=== PATIENT | female | born 1970 | race Caucasian/White ===

== ENCOUNTER → 2023-05-31 | Outpatient (CLI) | payer OTHER ==
--- NOTE | 2023-05-31 15:28 | US ---
EXAMINATION TYPE: US venous doppler duplex LE RT DATE OF EXAM: 05/31/2023 3:14 PM COMPARISON: NONE CLINICAL INDICATION: Female, 53 years old with history of R60.0 LOCALIZED EDEMA; Right calf pain foll owing trauma 5 days ago SIDE PERFORMED: Right TECHNIQUE: The lower extremity deep venous system is examined utilizing real time linear array sonog chicho with graded compression, doppler sonography and color-flow sonography. VESSELS IMAGED: Common Femoral Vein Deep Femoral Vein Greater Saphenous Vein * Femoral Vein Popliteal Vein Small Saphenous Vein * Proximal Calf Veins (* superficial vessels) Right Leg: Appears negative for DVT Right groin: 2.1 x 0.8 x 3.7cm lymph node. No thickened cortex. Right calf: 12.5 x 1.3 x 8.5cm superficial complex area . No surrounding hyperemia. IMPRESSION: 1. No ultrasound evidence for deep venous thrombosis of the right lower extremity. 2. Complex superficial elongated region within the right calf without internal color flow. This may r epresent a hematoma. 3. Multiple prominent right inguinal lymph node, likely reactive.
== END | disposition home or self-care (01) ==
LOC: RADUSWWP 14:32
PROVIDERS: ATTEND Family Medicine
DX: R60.0 Localized edema (principal); M79.604 Pain in right leg